=== PATIENT | male | born 1930 | race Caucasian/White ===

== ENCOUNTER → 2017-03-13 | Outpatient (CLI) | payer MEDICARE, BC, OTHER ==
--- NOTE | 2017-03-13 13:15 | RAD ---
Examination: CT chest without contrast History: History of lung nodule. Comparison: Technique: Axial CT images of the chest were performed without contrast. Coronal and sagittal reformats were performed. PQRS Compliance Statement: One or more of the following individualized dose reduction techniques were utilized for this examination: 1. Automated exposure control 2. Adjustment of the mA and/or kV according to patient size 3. Use of iterative reconstruction technique Findings: There is peripheral parenchymal airspace opacity identified in the right upper lobe of the lung abutting the pleura again identified however compared to prior exam there appears to be a small spiculated density which is new measuring 1.5 cm best visualized on series 2 image #108 just inferior to the parenchymal density. No evidence of pleural effusion or pneumothorax The visualized thyroid gland grossly appears unremarkable. The central airways are patent No radiologically significant mediastinal lymphadenopathy Coronary artery calcifications identified. Trace pericardial effusion Multiple cystic structure identified in the left lobe of the liver and in the right lobe of the liver with the largest measuring 2.2 cm likely cysts. Moderate degenerative changes thoracic spine. Impression: 1. Peripheral parenchymal airspace opacity identified in the right upper lobe of the lung abutting the pleura again identified however compared to prior exam there appears to be a small spiculated density which is new measuring 1.5 cm best visualized on series 2 image #108 just inferior to the parenchymal density. Neoplasm/malignancy is not completely excluded. Recommend PET CT scan for further evaluation.
== END | disposition home or self-care (01) ==
LOC: CT 12:41
PROVIDERS: ATTEND Internal Medicine Pulmonary Disease
DX: R91.1 Solitary pulmonary nodule (principal)
CPT/HCPCS: 71250

== ENCOUNTER → 2017-07-17 | Outpatient (CLI) | payer MEDICARE, BC, OTHER ==
--- NOTE | 2017-07-17 14:18 | RAD ---
CT of the chest without contrast, 07/17/2017: History: Follow-up lung nodule Noncontrast scans were obtained with multiplanar reconstructions produced. There is an irregular parenchymal opacity in the lateral aspect of the right upper lobe which abuts the pleura. There are couple of air bronchograms within this process. It is difficult to measure due to its irregular margins, however, on axial image 97 of series #5 it measures approximately 33 x 18 mm compared to a measurement of 29 x 14 mm on the 03/13/2017 exam. In the coronal plane on image 48 of series #3 it measures 2.2 cm in greatest craniocaudad extent compared to a measurement of 18 mm on the previous study. There is a calcified granuloma laterally in the right lower lobe. No other pulmonary nodularity or mass is seen. There are mild apical pleural opacities compatible with scarring. No pleural fluid is evident. There is moderate calcific plaquing of the thoracic aorta and its branches including the coronary arteries. Granulomatous calcifications are present the right hilum. No mediastinal adenopathy is seen. Moderate hypertrophic degenerative changes are present in the thoracic spine with bridging osteophytes anteriorly. Several unchanged low-density lesions in the liver are probably cysts. IMPRESSION: 1. The irregular peripheral pulmonary opacity in the lateral aspect of the right upper lobe has increased in size since 03/13/2017, raising the possibility of a pulmonary neoplasm. FDG PET/CT scanning may be useful for further evaluation, if clinically indicated. 2. Moderate coronary artery disease 3. Multiple hepatic cysts. PQRS Compliance Statement: One or more of the following individualized dose reduction techniques were utilized for this examination: 1. Automated exposure control 2. Adjustment of the mA and/or kV according to patient size 3. Use of iterative reconstruction technique
== END | disposition home or self-care (01) ==
LOC: CT 12:22
PROVIDERS: ATTEND Internal Medicine Pulmonary Disease
DX: R91.1 Solitary pulmonary nodule (principal); R91.8 Other nonspecific abnormal finding of lung field; I25.10 Atherosclerotic heart disease of native coronary artery without angina pectoris; K76.89 Other specified diseases of liver
CPT/HCPCS: 71250

== ENCOUNTER → 2018-01-22 | Outpatient (CLI) | payer MEDICARE, BC, OTHER ==
--- NOTE | 2018-01-22 14:09 | RAD ---
Examination: CT chest without contrast HISTORY: History of follow-up lung nodule. COMPARISON: 07/17/2017 TECHNIQUE: Axial CT images of chest were performed without contrast. Coronal and sagittally. Performed Exposure: One or more of the following individualized dose reduction techniques were utilized for this examination: 1. Automated exposure control 2. Adjustment of the mA and/or kV according to patient size 3. Use of iterative reconstruction technique FINDINGS: The central airways are patent. Coronary artery calcifications identified. The ascending aorta measures 3.9 cm in transverse dimension. Subcentimeter mediastinal lymph nodes identified. There is patchy irregular opacity identified in the right upper lobe of the lung abutting the pleura measuring 4.4 cm slightly increased compared to prior exam (prior 3.9 cm). This opacity has been present since March 2016 compared to prior exam disease appears slightly increased in size. No evidence of pleural effusion or pneumothorax. Changes of COPD. The visualized noncontrasted liver demonstrates 1.6 cm hypodensity in the right lobe of the liver. Small hypodensities identified in the left lobe of the liver is similar to prior exam. The visualized spleen, adrenals grossly appears unremarkable. Moderate degenerative changes thoracic spine. IMPRESSION: 1. Patchy irregular opacity identified in the right upper lobe of the lung laterally abutting the pleura appears slightly increased in size compared to prior exam. This opacity has been present since March 2016 however appears slightly increased in size compared to prior exam. Close interval follow-up examination in 3 months or follow-up PET/CT is recommended for further evaluation. 2. Small hypodensities identified in the liver probably cysts, stable since prior exam. Electronically signed by: Abel Krishna MD (01/22/2018 2:05 PM) [facility]
== END | disposition home or self-care (01) ==
LOC: CT 12:44
PROVIDERS: ATTEND Internal Medicine Pulmonary Disease
DX: R91.8 Other nonspecific abnormal finding of lung field (principal); I25.10 Atherosclerotic heart disease of native coronary artery without angina pectoris
CPT/HCPCS: 71250

== ENCOUNTER → 2018-10-15 | Outpatient (CLI) | payer MEDICARE, BC, OTHER ==
--- NOTE | 2018-10-15 13:06 | RAD ---
Examination: CT chest without contrast HISTORY: History of follow-up lung nodule COMPARISON: 01/30/2018 TECHNIQUE: Axial CT images of chest were performed without contrast. Coronal and sagittal reformats are performed. Exposure: One or more of the following individualized dose reduction techniques were utilized for this examination: 1. Automated exposure control 2. Adjustment of the mA and/or kV according to patient size 3. Use of iterative reconstruction technique FINDINGS: The visualized thyroid gland grossly appears unremarkable. The central airways are patent. Mild cardiomegaly. Diffuse coronary artery calcifications identified. Small subcentimeter mediastinal lymph nodes identified. There is a 3.7 x 3.0 cm (prior 3.7 x 2.3 cm) airspace opacity identified in the right upper lobe of the lung slightly increased since prior exam. There is a small calcified granuloma identified in the right lower lobe of the lung. No evidence of pleural effusion or pneumothorax identified. The visualized noncontrasted liver, demonstrates a hypodensity in the right lobe of the liver is similar to prior exam measuring 1.5 cm probably cyst. The visualized spleen, adrenals grossly appears unremarkable Moderate degenerative changes identified in thoracic spine with changes of DISH. IMPRESSION: 1. Mild increase in right upper lobe airspace opacity. Slow-growing neoplasm is not completely excluded. PET/CT follow-up is recommended. Electronically signed by: Abel Krishna MD (10/15/2018 1:03 PM) [facility] [place]
== END | disposition home or self-care (01) ==
LOC: CT 12:32
PROVIDERS: ATTEND Internal Medicine Pulmonary Disease
DX: J84.10 Pulmonary fibrosis, unspecified (principal); R91.8 Other nonspecific abnormal finding of lung field; I25.10 Atherosclerotic heart disease of native coronary artery without angina pectoris; I51.7 Cardiomegaly; M47.894 Other spondylosis, thoracic region
CPT/HCPCS: 71250

== ENCOUNTER → 2019-10-17 | Outpatient (CLI) | payer MEDICARE, BC, OTHER ==
--- NOTE | 2019-10-17 13:12 | RAD ---
EXAM: CT Chest without IV contrast INDICATION: Follow-up lung nodule TECHNIQUE: Multi-detector row CT images were acquired from the thoracic inlet through the upper abdomen without the use of IV contrast. Sagittal and coronal images were acquired from the transaxial data. All CT scans performed at this facility utilize dose optimization techniques as appropriate to the exam, including the following: Automated exposure control and adjustment of the mA and/or KV according to patient size (this includes techniques or standardized protocols for targeted exams where dose is indication/reason for exam). COMPARISON: Noncontrast chest CTs of 10/15/2018 and 07/17/2017. FINDINGS: The absence of IV contrast limits evaluation of soft tissue pathology. CARDIOVASCULAR: Scattered arterial calcifications including dense multivessel coronary calcifications. Normal heart size. No pericardial effusion. Mild ectasia of the ascending thoracic aorta to 4.1 cm. MEDIASTINUM & MATA: No adenopathy or masses. Calcified right hilar nodes are present.. LUNGS: Stable mild paraseptal pattern emphysematous change of the lung apices. Progressive increase in size of a mixed solid and groundglass mass in the right upper lobe with spiculation, causing mild retraction on the major fissure and within new satellite nodule at the inferior right upper lobe near the minor fissure, best illustrated on sagittal reformatted image 93 of series 4. Due to its irregular shape, measurement may very but on coronal image 49 of series 3, it measures 4.6 cm craniocaudal by 5.6 cm mediolateral and on axial image 35 of series 2, it measures 3.9 cm anterior-posterior. There is some pleural retraction towards the parietal pleura. At the comparable levels on the prior examination of a year ago, it measured 3.2 x 3.5 x 3.2 cm (coronal image 55 of series 3 and axial image 34 of series 2 on 10/15/2018). In comparison, in 2018, it measured 1.9 x 2.5 x 1.9 cm (coronal image 48 series 3 and axial image 33 of series 2 on 07/17/2017). There is a new 7 mm nodule at the right lung apex abutting the pleura (coronal image 54 of series 3). PLEURAL SPACE: No pleural effusions or pneumothorax. OSSEOUS & SOFT TISSUE: Unremarkable ABDOMEN: The visualized portions of the upper abdomen are unremarkable. IMPRESSION: Continued enlargement in a mixed solid and groundglass right upper lobe lung mass with new satellite nodules in the posterior inferior right upper lobe and near the right lung apex. These are of concern for an indolent right upper lobe lung malignancy. Electronically signed by: Sd Sims MD (10/17/2019 1:09 PM) [id number]
== END | disposition home or self-care (01) ==
LOC: CT 10:41
PROVIDERS: ATTEND Internal Medicine Pulmonary Disease
DX: C34.11 Malignant neoplasm of upper lobe, right bronchus or lung (principal); R91.8 Other nonspecific abnormal finding of lung field; I25.10 Atherosclerotic heart disease of native coronary artery without angina pectoris; I77.810 Thoracic aortic ectasia; J43.9 Emphysema, unspecified; R09.1 Pleurisy
CPT/HCPCS: 71250

== ENCOUNTER → 2020-01-25 | Outpatient (CLI) | payer MEDICARE, BC, OTHER ==
--- NOTE | 2020-01-25 12:02 | RAD ---
CT LUMBAR SPINE WO CONTRAST Indication: Low back pain, fall last week Technique: Noncontrast CT imaging was performed of the lumbar spine, multiplanar reconstruction images submitted. One or more of the following individualized dose reduction techniques were utilized for this examination: 1. Automated exposure control 2. Adjustment of the mA and/or kV according to patient size 3. Use of iterative reconstruction technique. Comparison: MRI lumbar spine 04/04/2016 Findings: Lumbar vertebral body stature is overall maintained, small Schmorl's nodes such as inferiorly of L3 and superiorly of L2. There is bone demineralization. There is again fairly advanced degenerative disc disease L1-2 through L4-5 and to lesser degree L5-S1. There is negligible anterior spondylolisthesis L3-4. There is bilateral L3 and left L2 spondylolysis, corticated margins. Mild bony irregularity of the right L1 transverse process is believed to be old. No convincing acute fracture is identified by CT. There is atherosclerotic calcification of the abdominal aorta and branches. L1-2: There is minimal disc osteophyte complex, spinal canal not significantly narrowed. There is bilateral facet degenerative change. There is minimal narrowing of the left neural foramen. L2-3: There has been posterior decompression. There is facet hypertrophic change. There are posterior osteophytes. Spinal canal is adequate. There is mild narrowing of the right neural foramen. L3-4: There is facet hypertrophic change. There has been posterior decompression. There are posterior osteophytes. Spinal canal is overall adequate. There is moderate to severe narrowing of the neural foramina bilaterally by facet osteophytes and disc osteophyte complex. L4-5: There is facet hypertrophic change greater on the right. There are laminectomy defects greater on the left. There is minimal posterior disc osteophyte complex. There is likely [id number] narrowing of the far lateral recesses bilaterally, spinal canal poorly characterized on this nonmyelographic exam. There is moderate to severe left and fairly severe right neural foramina compromise. L5-S1: There is fairly severe facet degenerative change. There is minimal disc osteophyte complex. Spinal canal is not significantly narrowed. There is [id number] left and fairly severe right neural foramina compromise, narrowing on the right by disc osteophyte complex and facet. IMPRESSION: 1. No convincing acute lumbar spine fracture is identified. There is bilateral L3 and left L2 spondylolysis although apparently old. There is multilevel lumbar degenerative disc disease and facet degenerative change. There is degree of lateral recess stenosis bilaterally at L4-5. There is multilevel lumbar neural foramina compromise as stated. Electronically signed by: Edwardo Ugalde MD (01/25/2020 11:59 AM) [id number]
== END | disposition home or self-care (01) ==
LOC: CT 10:42
PROVIDERS: ATTEND Family Medicine
DX: M47.817 Spondylosis without myelopathy or radiculopathy, lumbosacral region (principal); M48.07 Spinal stenosis, lumbosacral region; M43.16 Spondylolisthesis, lumbar region; M89.48 Other hypertrophic osteoarthropathy, other site; M51.46 Schmorl's nodes, lumbar region; M25.78 Osteophyte, vertebrae; M81.0 Age-related osteoporosis without current pathological fracture; M51.37 Other intervertebral disc degeneration, lumbosacral region; I70.0 Atherosclerosis of aorta; G89.4 Chronic pain syndrome
CPT/HCPCS: 72131

== ENCOUNTER 2020-07-26 10:19 | Emergency (ER) | payer MEDICARE, BC, OTHER ==
[~2020-07-26] VITALS: Ht 200.7 cm; Wt 104.5 kg
--- NOTE | 2020-07-26 10:50 | PHYS DOC ---
Past History Past Medical History A. fib, history of lung cancer, history of throat cancer, high blood pressure, high cholesterol Past Surgical History Right laryngeal resection, multiple back surgeries Additional Smoking Information: FORMER Alcohol Use: None Drug Use: None General Adult EDM: Chief Complaint: HEMATEMESIS/VOMITING BLOOD HPI: HPI: This is a pleasant 89-year-old male with a history of lung cancer in the past presenting to the emergency department today with hemoptysis worse at night. It is a posttussis hemoptysis he will cough for 4 5 times and then afterwards coughed up blood. In the daytime he denies hemoptysis. He called his doctor and told him who referred him to the emergency department today. Currently he is not having any hemoptysis. He denies any symptoms currently. Onset weeks. Duration intermittent. Timing at night. Review of systems negative for chest pain shortness of breath headache vomiting fevers chills. All other review of systems negative. ED course: 89-year-old male presenting with hemoptysis at night. Vitals on arrival are unremarkable. Hemoglobin 11.9. White blood cell count within normal limits. Chemistry panel shows a BUN of 36 and a creatinine of 1.5. Troponin within the reference range of normal. CT shows 7.5 x 4 cm lung mass increased from previous. I spoke with Dr. Alberto the patient's primary physician we will get the patient over to hematology oncology for further evaluation treatment and care. Allergies: Allergies: Allergies Uncoded Allergies Type Severity Reaction Last Updated Verified PENICILLIN Allergy Unknown 07/26/20 Physical Exam: PE: Constitutional: Well developed, well nourished, no acute distress, non-toxic appearance. [] HENT: Normocephalic, atraumatic, bilateral external ears normal, oropharynx moist, no oral exudates, nose normal. [] Eyes: PERRLA, EOMI, conjunctiva normal, no discharge. [] Neck: Normal range of motion, no tenderness, supple, no stridor. [] Cardiovascular:Heart rate regular rhythm, no murmur [] Lungs & Thorax: Bilateral breath sounds clear to auscultation [] no wheezing. Abdomen: Bowel sounds normal, soft, no tenderness, no masses, no pulsatile masses. [] Skin: Warm, dry, no erythema, no rash. [] Back: No tenderness, no CVA tenderness. [] Extremities: No tenderness, no cyanosis, no clubbing, ROM intact, no edema. [] Neurologic: Alert and oriented X 3, normal motor function, normal sensory function, no focal deficits noted. [] Psychologic: Affect normal, judgement normal, mood normal. [] EKG: EKG: [] Radiology/Procedures: Radiology/Procedures: [] Heart Score: Risk Factors: Risk Factors: DM, Current or recent (<one month) smoker, HTN, HLP, family history of CAD, obesity. Risk Scores: Score 0 - 3: 2.5% MACE over next 6 weeks - Discharge Home Score 4 - 6: 20.3% MACE over next 6 weeks - Admit for Clinical Observation Score 7 - 10: 72.7% MACE over next 6 weeks - Early Invasive Strategies Course & Med Decision Making: Course & Med Decision Making Pertinent Labs and Imaging studies reviewed. (See chart for details) [] Dragon Disclaimer: Dragon Disclaimer: This electronic medical record was generated, in whole or in part, using a voice recognition dictation system. Departure Departure: Impression: Primary Impression: Hemoptysis Additional Impression: Lung mass Disposition: 01 DC HOME SELF CARE/HOMELESS Condition: STABLE Referrals: DOC WEST MD (PCP) Additional Instructions: EMERGENCY DEPARTMENT GENERAL DISCHARGE INSTRUCTIONS Follow-up with your primary physician in 1 to 2 days. Return to the emergency department if you have any new or concerning findings. Thank you for coming to [facility] emergency department today and trusting us with you care. We trust that you had a positive experience in our Emergency Department. If you wish to speak to the department management, you may call the Director at [phone]. YOUR FOLLOW UP INSTRUCTIONS ARE FOLLOWS: 1. Do you have a private Doctor? If you do not have a private doctor, please ask for a resource list of physicians or clinics that may be able to assist you with follow up care. 2. If a lab test or culture has been done and does not come back immediately, your results will be reviewed and you will be notified if you need a change in treatment. ADDITIONAL INSTRUCTIONS AND INFORMATION: 1. Your care today has been supervised by a physician who is specially trained in emergency care. Many problems require more than one evaluation for a complete diagnosis and treatment. We recommend that you schedule your follow up appointment as recommended to ensure complete treatment of you illness or injury. If you are unable to obtain follow up care and continue to have a problem, or if your condition worsens, we recommend that you return to the ED. 2. We are not able to safely determine your condition over the phone nor are we able to give sound medical advice over the phone. For these safety reasons, if you call for medical advice we will ask you to come to the ED for further evaluation. 3. If you have any questions regarding these discharge instructions please call the ED at [phone]. SAFETY INFORMATION: In the interest of safety, wellness, and injury prevention; we encourage you to wear your sealbelt, if you smoke; quite smoking, and we encourage family to use a protective helmet for bicycling and other sporting events that present an increased risk for head injury. IF YOUR SYMPTOMS WORSEN OR NEW SYMPTOMS DEVELOP, OR YOU HAVE CONCERNS ABOUT YOUR CONDITION; OR IF YOUR CONDITION WORSENS WHILE YOU ARE WAITING FOR YOUR FOLLOW UP APPOINTMENT; EITHER CONTACT YOUR PRIMARY CARE DOCTOR, THE PHYSICIAN WHOSE NAME AND NUMBER YOU WERE GIVEN, OR RETURN TO THE ED IMMEDIATELY. This condition should be evaluated by your primary care physician and any necessary consulting services for continued management within a few days (1-2) after discharge. Return to the emergency department if you have any new or conc erning symptoms including but not limited to fever, chills, nausea, vomiting, intractable pain, any new rashes, chest pain, shortness of breath, uncontrolled bleeding, difficulty breathing, and/or vision loss. SABRA DEGROOT MD Jul 26, 2020 10:50
[2020-07-26 11:23] LABS: BASO % 1 % (0-3); EOS # 0.3 x10^3/uL (0.0-0.7); EOS % 6 % (0-3); HEMATOCRIT 36.9 % (39.0-53.0); HEMOGLOBIN 11.9 g/dL (13.0-17.5); LYMPH # 1.2 x10^3/uL (1.0-4.8); LYMPH % 23 % (24-48); MEAN CORPUSCULAR HEMOGLOBIN 31 pg (25-35); MEAN CORPUSCULAR HGB CONC 32 g/dL (31-37); MEAN CORPUSCULAR VOLUME 97 fL (79-100); MONO # 0.6 x10^3/uL (0.0-1.1); MONO % 12 % (0-9); NEUT % 58 % (31-73); PLATELET COUNT 223 x10^3/uL (140-400); RED BLOOD COUNT 3.82 x10^6/uL (4.30-5.70); RED CELL DISTRIBUTION WIDTH 13.5 % (11.5-14.5); WHITE BLOOD COUNT 5.2 x10^3/uL (4.0-11.0)
--- NOTE | 2020-07-26 11:29 | RAD ---
EXAM: CHEST 1 VIEW History: Chest pain COMPARISON: 10/17/2019 CT TECHNIQUE: Single portable radiograph of the chest FINDINGS: Mild cardiomegaly. Focal opacity identified in the right upper lobe of the lung likely mal ignancy/consolidation. The costophrenic sulci are clear and well demarcated. IMPRESSION: Focal opacity identified in the right upper lobe of the lung likely consolidation/malign chato. Electronically signed by: Abel Krishna MD (07/26/2020 11:27 AM) [id number]
[2020-07-26 11:33] LABS: CALCIUM 9.5 mg/dL (8.5-10.1); CREATININE 1.5 mg/dL (0.7-1.3); GFR 44.1; POTASSIUM 4.9 mmol/L (3.5-5.1)
[2020-07-26 11:38] LABS: ALBUMIN 3.9 g/dL (3.4-5.0); DIRECT BILIRUBIN 0.1 mg/dL (0.0-0.2); TOTAL BILIRUBIN 0.4 mg/dL (0.2-1.0); TOTAL PROTEIN 7.3 g/dL (6.4-8.2)
[2020-07-26 13:36] VITALS: BP 123/52
[2020-07-26] MEDS ORDERED: IOHEXOL 300 MG/ML 75 ML VIAL. IV ONE (14:00)
--- NOTE | 2020-07-26 15:06 | RAD ---
EXAM: CT Chest with IV contrast INDICATION: Reason: HEMOPTYSIS, HX OF LUNG CANCER - 60MLS OMNI / Spl. Instructions: / History: TECHNIQUE: Multi-detector row CT images were acquired from the thoracic inlet through the upper abdo men with the use of IV contrast. Sagittal and coronal images were acquired from the transaxial data. All CT scans performed at this facility utilize dose optimization techniques as appropriate to the ex am, including the following: Automated exposure control and adjustment of the mA and/or KV according to patient size (this includes techniques or standardized protocols for targeted exams where dose is indication/reason for exam). IV CONTRAST: Administered COMPARISON: CT chest without IV contrast of 10/17/2019 FINDINGS: CARDIOVASCULAR: Arterial calcifications, including multivessel coronary calcifications, are redemons trated. MEDIASTINUM & MATA: No adenopathy or masses. LUNGS: Further increase in size of the right upper lobe lung mass now measuring 7.5 x 4.3 x 4.5 cm (c c by AP by transverse) with more confluent masslike soft tissue and interval further abutment along a nd retraction of the major and minor fissures. PLEURAL SPACE: No pleural effusions or pneumothorax. OSSEOUS & SOFT TISSUE: Unremarkable ABDOMEN: The visualized portions of the upper abdomen are unremarkable. IMPRESSION: Enlarging mass in the right upper lobe, now measuring 7.5 x 4.3 x 4.5 cm consistent with patient's kn own lung malignancy. Superimposed infection is possible. No other cause for hemoptysis identified on contrast enhanced chest CT. Electronically signed by: Sd Sims MD (07/26/2020 3:03 PM) [id number]
== END 2020-07-26 15:26 | disposition home or self-care (01) ==
LOC: ER 10:19
DX: R04.2 Hemoptysis (principal); R91.8 Other nonspecific abnormal finding of lung field; I48.20 Chronic atrial fibrillation, unspecified; I10 Essential (primary) hypertension; E78.00 Pure hypercholesterolemia, unspecified; Z85.118 Personal history of other malignant neoplasm of bronchus and lung; Z98.890 Other specified postprocedural states; Z88.0 Allergy status to penicillin
CPT/HCPCS: 36415; 71045; 71260; 80048; 80076; 83690; 84484; 85025; 99285; Q9967